=== PATIENT | male | born 1985 | race Hispanic/Latino ===

== ENCOUNTER 2018-05-28 10:53 | Emergency (ER) | payer SELFPAY ==
[2018-05-28] MEDS ORDERED: ONDANSETRON HCL 4 MG/2 ML VIAL ONE (11:44)
[2018-05-28] MEDS ORDERED: ASPIRIN 325 MG TABLET ONE (12:12)
[2018-05-28] MEDS ORDERED: MORPHINE SULFATE 4 MG/1ML SYG ONE ×2 (12:12→13:55)
[2018-05-28 12:33] LABS: BASOPHILS % (AUTO) 0.5 % (0.0-5.0); LYMPHOCYTES % (AUTO) 9.2 % (21.0-51.0); MEAN CORPUSCULAR HEMOGLOBIN 30.7 pg (27.0-33.0); MEAN CORPUSCULAR HGB CONC 33.7 g/dL (32.0-36.0); MONOCYTES % (AUTO) 3.3 % (3.0-13.0); PLATELET COUNT (AUTO) 244 K/uL (130-400); RED BLOOD CELL COUNT(AUTO) 5.17 MIL/uL (4.50-6.20)
[2018-05-28 12:48] LABS: INR 0.9 (0.85-1.15); PARTIAL THROMBOPLASTIN TIME 29.9 SEC (26.3-35.5); PROTHROMBIN TIME 9.5 SEC (9.6-11.6)
[2018-05-28 12:50] LABS: POTASSIUM 3.9 mmol/L (3.5-5.1)
[2018-05-28 12:55] LABS: ALBUMIN 4.5 g/dL (3.5-5.0); BILIRUBIN,TOTAL 0.6 mg/dL (0.2-1.0); TOTAL PROTEIN, SERUM 8.4 g/dL (6.0-8.3)
[2018-05-28] MEDS ORDERED: NITROGLYCERIN 0.4 MG SL TAB SL ONE (13:54)
[2018-05-28] MEDS ORDERED: IOHEXOL 350 MG/ML 100ML INFUS..BTL IV ONE (15:56)
== END 2018-05-28 18:00 | disposition home or self-care (01) ==
LOC: EDH 10:53
DX: F41.0 Panic disorder [episodic paroxysmal anxiety] (principal); R07.89 Other chest pain; R00.1 Bradycardia, unspecified; Z88.0 Allergy status to penicillin; Z72.0 Tobacco use
CPT/HCPCS: 36415; 71045; 71275; 80053; 82550; 83690; 84484 ×2; 85025; 85610; 85730; 93005 ×2; 96374; 96375; 96376; 99285; J2270 ×2; J2405; Q9967